=== PATIENT | female | born 1955 | race Caucasian/White ===

== ENCOUNTER 2022-06-21 09:21 | Emergency (ER) | payer MEDICARE ==
[~2022-06-21] VITALS: Ht 157.5 cm; Wt 62.3 kg
[2022-06-21 09:23] VITALS: BP 181/81
[2022-06-21 09:56] LABS: BASOPHILS % (AUTO) 0.8 % (0-1); EOSINOPHILS # (AUTO) 0.1 X10'3 (0-0.9); EOSINOPHILS % (AUTO) 1.8 % (0-6); HEMATOCRIT 39.8 % (35.0-45.0); HEMOGLOBIN 13.7 g/dl (12.0-16.0); LYMPHOCYTES # (AUTO) 1.2 X10'3 (1.1-4.8); LYMPHOCYTES % (AUTO) 25.5 % (21-51); MEAN CORPUSCULAR HEMOGLOBIN 33.5 PG (27.0-31.0); MEAN CORPUSCULAR HGB CONC 34.5 g/dL (33.0-36.5); MEAN CORPUSCULAR VOLUME 97.1 FL (78-98); MEAN PLATELET VOLUME 9.4 FL (7.4-10.4); MONOCYTES # (AUTO) 0.3 X10'3 (0-0.9); MONOCYTES % (AUTO) 6.7 % (2-12); NEUTROPHILS # (AUTO) 3.1 X10'3 (1.8-7.7); NEUTROPHILS % (AUTO) 65.2 % (42-75); PLATELET COUNT 211 X10'3 (140-440); RED BLOOD COUNT 4.09 X10'6 (4.20-5.60); RED CELL DISTRIBUTION WIDTH 13.1 % (11.5-14.5); WHITE BLOOD COUNT 4.7 X10'3 (4.5-11.0)
[2022-06-21 10:05] LABS: ALANINE AMINOTRANSFERASE 25 U/L (12-78); ALBUMIN 3.7 G/DL (3.4-5.0); ALBUMIN/GLOBULIN RATIO 1.1 (1.1-1.5); ALKALINE PHOSPHATASE 80 IU/L (46-116); ANION GAP 9 (8-16); ASPARTATE AMINO TRANSFERASE 18 U/L (10-37); BILIRUBIN,TOTAL 0.6 MG/DL (0.1-1.0); BLOOD UREA NITROGEN 19 MG/DL (7-18); BUN/CREATININE RATIO 23.5 (6.6-38.0); CALCIUM 8.8 MG/DL (8.5-10.1); CHLORIDE 103 MMOL/L (99-107); CREATININE 0.81 MG/DL (0.40-0.90); GLUCOSE 231 MG/DL (70-104); LIPASE 71 U/L (73-393); POTASSIUM 4.1 MMOL/L (3.5-5.1); SODIUM 141 MMOL/L (135-145); TOTAL CARBON DIOXIDE 29.3 MMOL/L (24-32); eGFR 70 ML/MIN
[2022-06-21 12:13] LABS: CLARITY,URINE SLIGHTLY CLOUDY (Clear); COLOR,URINE YELLOW (Yellow); GLUCOSE, URINE NEGATIVE (Neg); KETONES,URINE NEGATIVE (Neg); LEUKOCYTE ESTERASE ,URINE NEGATIVE (Neg); NITRITES, URINE NEGATIVE (Neg); OCCULT BLOOD,URINE NEGATIVE (Neg); PROTEIN,URINE NEGATIVE (Neg); UROBILINOGEN,URINE 0.2 E.U/dL (0.2-1.0)
[2022-06-21 12:14] LABS: UA COLLECTION TYPE VOIDED
[2022-06-21 12:17] LABS: URINE HCG NEGATIVE (NEG)
[2022-06-21 12:22] LABS: MUCUS STRANDS FEW /LPF (Neg); SQUAMOUS EPITHELIAL CELL,UR MANY /LPF (FEW)
[2022-06-21 12:23] LABS: BACTERIA,URINE 2+ /HPF (Neg); RBC,URINE 0-2 /HPF (0-2); WBC,URINE 0-4 /HPF (0-4)
[2022-06-21] MEDS ORDERED: LOPE2CAP PO (14:33)
== END 2022-06-21 15:04 | disposition home or self-care (01) ==
LOC: ER 09:21
DX: R19.7 Diarrhea, unspecified (principal); R10.84 Generalized abdominal pain; G89.29 Other chronic pain; E11.9 Type 2 diabetes mellitus without complications; Z88.2 Allergy status to sulfonamides; Z88.4 Allergy status to anesthetic agent; Z90.49 Acquired absence of other specified parts of digestive tract; Z90.710 Acquired absence of both cervix and uterus
CPT/HCPCS: 36415; 80053; 81001; 81025; 83690; 85025; 99283

== ENCOUNTER 2024-01-22 05:46 | Day surgery (SDC) | payer MEDICARE ==
[2024-01-17 12:14] LABS: BASOPHILS % (AUTO) 0.5 % (0-1); EOSINOPHILS # (AUTO) 0.2 X10'3 (0-0.9); EOSINOPHILS % (AUTO) 3.5 % (0-6); LYMPHOCYTES # (AUTO) 1.2 X10'3 (1.1-4.8); LYMPHOCYTES % (AUTO) 22.6 % (21-51); MEAN CORPUSCULAR HEMOGLOBIN 33.7 PG (27.0-31.0); MEAN CORPUSCULAR VOLUME 99.2 FL (78-98); MEAN PLATELET VOLUME 9.3 FL (7.4-10.4); MONOCYTES # (AUTO) 0.4 X10'3 (0-0.9); NEUTROPHILS # (AUTO) 3.3 X10'3 (1.8-7.7); NEUTROPHILS % (AUTO) 65.4 % (42-75); PRE OP HEMATOCRIT 40.8 % (35.0-45.0); PRE OP HEMOGLOBIN 13.9 g/dL (12.0-16.0); PRE OP PLATELET COUNT 214 X10'3 (140-440); PRE OP WHITE BLOOD COUNT 5.1 10'3 (4.8-10.8); RED BLOOD COUNT 4.12 X10'6 (4.20-5.60); RED CELL DISTRIBUTION WIDTH 13.2 % (11.5-14.5)
[2024-01-17 12:27] LABS: ALBUMIN 3.9 G/DL (3.4-5.0); ALBUMIN/GLOBULIN RATIO 1.3 (1.1-1.5); ALKALINE PHOSPHATASE 78 IU/L (46-116); BLOOD UREA NITROGEN 25 MG/DL (7-18); BUN/CREATININE RATIO 31.6 (10.0-20.0); CREATININE 0.79 MG/DL (0.40-0.90); PRE OP ALT 30 U/L (30-65); PRE OP AST 15 U/L (10-37); PRE OP BILIRUB, TOTAL 0.6 MG/DL (0.0-1.0); PRE OP GLUCOSE 142 MG/DL (70-104); PRE OP POTASSIUM 4.4 MMOL/L (3.4-5.1); PRE OP SODIUM 141 MMOL/L (135-145); TOTAL CARBON DIOXIDE 30.5 MMOL/L (24-32); eGFR 72 ML/MIN
[2024-01-17 12:40] LABS: CHLORIDE 105 MMOL/L (99-107); PRE OP ANION GAP 6 (8-16)
[2024-01-22] VITALS (8 sets, daily range): BP systolic 103–158; BP diastolic 41–96; PULSE 57–68; RESP 10–16; TEMP 98.5; O2SAT 94–100
[~2024-01-22] VITALS: Ht 157.5 cm; Wt 66.1 kg
[2024-01-22] MEDS: cefazolin 2gm/D5W 100mL 100 ML IV ONE (05:30)
[~2024-01-22 05:46] MED LIST: ADV50250 INH; ALBU8HFA INH; COQ PO; ESTR0.6261 PO; GABA300T28 PO; IBUP-2697 PO; INDLA60C PO; MULT-1085 PO; PANCREATIC ENZYMES PO; PIOG30TA71 PO; ROSU10TA28 PO; SPIR25TA5 PO; VALA100031 PO
[2024-01-22] MEDS ORDERED: LIDOcaine 1% (10mg/ml)w/preservative inj. 20ml MDV ONE (06:50)
[2024-01-22] MEDS: famotidine 20mg tablet PO ONE (07:28)
[2024-01-22] MEDS: ringers solution, lacted 1,000 ML IV SCH (07:29)
[2024-01-22] MEDS ORDERED: fentaNYL/PF 50MCG/1 ML 2ML syringe IV PRN ×2 (07:50)
[2024-01-22] MEDS ORDERED: labetalol 20mg/4ml (5mg/ml) syringe IV PRN (07:50)
[2024-01-22] MEDS ORDERED: morphine 2 MG/ML inj. syringe IV PRN (07:50)
[2024-01-22] MEDS ORDERED: morphine 4 MG/ML inj SYRINge IV PRN (07:50)
[2024-01-22] MEDS ORDERED: ringers solution, lacted 1,000 ML IV SCH (07:50)
[2024-01-22] MEDS ORDERED: ondansetron/PF 4mg/2ml inj IV PRN (07:50)
[2024-01-22] MEDS ORDERED: hydrALAZINE 20mg/ml inj. IV PRN (07:50)
[2024-01-22] MEDS ORDERED: LIDOcaine 0.5% (5mg/ml) 50ml vial ONE ×2 (07:51→08:02)
[2024-01-22] MEDS ORDERED: MIDAZolam 1mg/ml 10ml vial ONE (07:57)
[2024-01-22] MEDS ORDERED: fentaNYL/PF 50MCG/1 ML 2ML syringe ONE (07:57)
[2024-01-22] MEDS ORDERED: ketorolac trometh. 30mg/ml inj. ONE (07:58)
[2024-01-22] MEDS ORDERED: LIDOcaine 1%/PF 5ML 10 MG/ML VIAL ONE ×2 (07:58)
[2024-01-22] MEDS ORDERED: ondansetron/PF 4mg/2ml inj ONE (08:05)
[2024-01-22] MEDS ORDERED: sevoflurane 250ml liquid IH ONE (08:05)
[2024-01-22] MEDS ORDERED: propofol inj 20 ML IV ONE (08:48)
[2024-01-22] MEDS: BUPIVAcaine/PF 2.5mg/ml (0.25%) 10ml vial ONE (08:52)
== END 2024-01-22 09:48 | disposition home or self-care (01) ==
LOC: PAS 05:46
PROVIDERS: ATTEND Orthopaedic Surgery Hand Surgery
DX: G56.22 Lesion of ulnar nerve, left upper limb (principal); I10 Essential (primary) hypertension; E11.9 Type 2 diabetes mellitus without complications; E78.00 Pure hypercholesterolemia, unspecified; J44.9 Chronic obstructive pulmonary disease, unspecified; Z79.899 Other long term (current) drug therapy; Z90.710 Acquired absence of both cervix and uterus; Z98.890 Other specified postprocedural states; Z88.2 Allergy status to sulfonamides; Z88.8 Allergy status to other drugs, medicaments and biological substances; Z88.5 Allergy status to narcotic agent; Z82.49 Family history of ischemic heart disease and other diseases of the circulatory system
CPT/HCPCS: 24358; 36415; 64718; 80053; 82948; 85025; J0690; J1885; J2250; J2405; J2704; J3010; J3490; J7030; J7120; Z7506; Z7508; Z7512; A4215; A4565; A6449